=== PATIENT | female | born 1975 | race Caucasian/White ===

== ENCOUNTER 2018-03-31 11:33 | Inpatient (IN) | payer OTHER ==
[2018-03-31] MEDS ORDERED: LACTATED RINGERS 1,000 ML IV PRN (12:28)
[2018-03-31] MEDS ORDERED: FENTANYL 100MCG/2ML SOL IV PRN (12:28)
[2018-03-31] MEDS ORDERED: METHYLERGONOVINE MALEATE 0.2 MG/ML SOL IM PRN (12:28)
[2018-03-31] MEDS ORDERED: SODIUM CHLORIDE 0.9% FLUSH 10 ML SOL IV PRN (12:28)
[2018-03-31] MEDS ORDERED: OXYTOCIN 10000 MU/ML SOL IM PRN (12:28)
[2018-03-31] MEDS ORDERED: CARBOPROST 250 MCG/ML SOL IM PRN (12:28)
[2018-03-31] MEDS ORDERED: MEPIVACAINE HCL 1% MPF 30 ML/VIAL SOL INFIL PRN (12:28)
[2018-03-31] MEDS ORDERED: INSULIN HUMAN REGULAR 100 U/ML SOL SC ONE ×2 (12:40→17:00)
[2018-03-31 12:54] LABS: BASOPHILS % (AUTO) 0 % (0-3); EOSINOPHILS % (AUTO) 2 % (0-9); HEMATOCRIT 35 % (35-47); HEMOGLOBIN 11.2 gm/dl (12.0-15.5); LYMPHOCYTES % (AUTO) 17.9 % (10-50); MEAN CORPUSCULAR HEMOGLOBIN 26.8 pg (27.0-32.0); MEAN CORPUSCULAR HGB CONC 32.3 gm/dl (32.0-36.0); MEAN CORPUSCULAR VOLUME 83 fL (81-99); MONOCYTES % (AUTO) 5.4 % (0-12); NEUTROPHILS % (AUTO) 74.7 % (37-80)
[2018-03-31] MEDS ORDERED: INSULIN HUMAN REGULAR 100 U/ML SOL ONE (12:54)
[2018-03-31] MEDS: SODIUM CHLORIDE 0.9% FLUSH 10 ML SOL IV SCH ×2 (13:08→19:45)
[2018-03-31] MEDS: NOVOLOG FLEXPEN SC SCH ×2 (17:30→21:59)
[2018-03-31] MEDS ORDERED: TERBUTALINE SULFATE 1 MG/ML SOL SC PRN (18:40)
[2018-03-31] MEDS ORDERED: OXYTOCIN 10000 MU/ML 20,000 MU in LACTATED RINGERS 1,000 ML IV SCH (18:45)
[2018-03-31] MEDS ORDERED: LACTATED RINGERS 1,000 ML IV SCH (18:45)
[2018-03-31] MEDS ORDERED: OXYTOCIN 10000 MU/ML SOL ONE (19:28)
[2018-03-31] MEDS ORDERED: LACTATED RINGERS 1,000 ML ONE (19:29)
[2018-03-31] MEDS ORDERED: DIPHENHYDRAMINE 50 MG/ML SOL IV PRN (21:22)
[2018-03-31] MEDS ORDERED: NALBUPHINE HCL 20 MG/ML SOL IV PRN (21:22)
[2018-03-31] MEDS ORDERED: EPHEDRINE SULFATE 50 MG/ML SOL IV PRN (21:22)
[2018-03-31] MEDS ORDERED: NALOXONE HYDROCHLORIDE 0.4 MG/ML SOL IV PRN (21:22)
[2018-03-31] MEDS: LACTATED RINGERS 1,000 ML IV SCH ×3 (21:33→22:30)
[2018-03-31] MEDS ORDERED: FENTANYL 250 MCG/ 5ML SOL ONE (21:53)
[2018-03-31] MEDS ORDERED: ROPIVACAINE HYDROCHLORIDE 5 MG/ML SOL ONE (21:53)
[2018-04-01] MEDS: LACTATED RINGERS 1,000 ML IV SCH ×4 (04:47→17:18)
[2018-04-01] MEDS: SODIUM CHLORIDE 0.9% FLUSH 10 ML SOL IV SCH ×3 (04:48→21:48)
[2018-04-01] MEDS ORDERED: ACETAMINOPHEN 325 MG PO PRN (05:11)
[2018-04-01] MEDS: NOVOLOG FLEXPEN SC SCH ×4 (08:34→21:40)
[2018-04-01] MEDS ORDERED: AZITHROMYCIN 500 MG PDS 500 MG in SODIUM CHLORIDE 0.9% 250 ML 250 ML IV ONE (11:49)
[2018-04-01] MEDS ORDERED: CITRIC ACID/SODIUM CITRATE SOL PO ONE (11:49)
[2018-04-01] MEDS ORDERED: SODIUM CHLORIDE 0.9% 50 ML 25 ML IV PRN (11:49)
[2018-04-01] MEDS ORDERED: LIDOCAINE HCL 2% MPF 10 ML SOL ONE (12:18)
[2018-04-01] MEDS ORDERED: FENTANYL 100MCG/2ML SOL ONE (12:22)
[2018-04-01 12:29] LABS: BASOPHILS % (AUTO) 0 % (0-3); EOSINOPHILS % (AUTO) 1 % (0-9); HEMATOCRIT 36 % (35-47); HEMOGLOBIN 11.2 gm/dl (12.0-15.5); MEAN CORPUSCULAR HEMOGLOBIN 25.8 pg (27.0-32.0); MEAN CORPUSCULAR HGB CONC 30.8 gm/dl (32.0-36.0); MEAN CORPUSCULAR VOLUME 84 fL (81-99); MONOCYTES % (AUTO) 6.9 % (0-12); NEUTROPHILS % (AUTO) 81.9 % (37-80)
[2018-04-01] MEDS ORDERED: AZITHROMYCIN 500 MG PDS IV ONE (12:29)
[2018-04-01] MEDS ORDERED: ONDANSETRON HCL 4 MG/2 ML SOL ONE (12:42)
[2018-04-01] MEDS ORDERED: PHENYLEPHRINE HYDROCHLORIDE 10 MG/ML SOL ONE (12:44)
[2018-04-01] MEDS ORDERED: CEFAZOLIN SODIUM 1 GM PDS IV ONE (12:53)
[2018-04-01] MEDS: CEFAZOLIN (PREMIX) 1 GM 1 GM/50 ML SOL IV SCH ×2 (12:53→18:54)
[2018-04-01] MEDS ORDERED: LACTATED RINGERS 1,000 ML with OXYTOCIN 10000 MU/ML 20 MU IV ONE (12:55)
[2018-04-01] MEDS ORDERED: OXYTOCIN 10000 MU/ML SOL ONE ×2 (12:59→14:16)
[2018-04-01 13:13] LABS: ABO A; ANTIBODY SCREEN Negative; RH TYPE Positive
[2018-04-01] MEDS ORDERED: HYDROMORPHONE 1 MG/ML SYRINGE ONE (13:35)
[2018-04-01] MEDS ORDERED: BUPIVACAINE HCL 0.25% MPF 30 ML SOL INFIL ONE (13:48)
[2018-04-01] MEDS ORDERED: WITCH HAZEL 1 EA PAD TOP PRN (13:51)
[2018-04-01] MEDS ORDERED: METHYLERGONOVINE MALEATE 0.2 MG TAB PO PRN (13:51)
[2018-04-01] MEDS ORDERED: BISACODYL 10 MG SUP PR PRN (13:51)
[2018-04-01] MEDS ORDERED: TEMAZEPAM 15MG 15 MG CAP PO PRN (13:51)
[2018-04-01] MEDS ORDERED: BENZOCAINE/MENTHOL 1 SPR TOP PRN (13:51)
[2018-04-01] MEDS ORDERED: FLEET ENEMA PR PRN (13:51)
[2018-04-01] MEDS ORDERED: SODIUM CHLORIDE 0.9% FLUSH 10 ML SOL IV ONE (13:57)
[2018-04-01] MEDS: APAP/HYDROCODONE 1 EACH TABLET PO PRN ×2 (14:26→23:45)
[2018-04-01] MEDS: IBUPROFEN 600 MG TAB PO PRN ×2 (17:20→18:53)
[2018-04-01] MEDS ORDERED: CEFAZOLIN SODIUM 1 GM PDS ONE (18:40)
[2018-04-01 20:37] LABS: APPEARANCE,URINE Clear; BILIRUBIN,URINE NEGATIVE (NEGATIVE); COLOR,URINE Yellow; GLUCOSE, URINE (UA) NEGATIVE (NEGATIVE); KETONES,URINE NEGATIVE (NEGATIVE); LEUKOCYTE ESTERASE ,URINE NEGATIVE (NEGATIVE); NITRATE,URINE NEGATIVE (NEGATIVE); OCCULT BLOOD,URINE TRACE LYSED (NEG-TRACE); PH,URINE 5.5; UROBILINOGEN,URINE 0.2 (0.2-1.0 EU)
[2018-04-01] MEDS ORDERED: APAP/HYDROCODONE 1 EACH TABLET ONE ×2 (20:44→20:54)
[2018-04-01 20:50] LABS: BACTERIA NEGATIVE (< 1+); CRYSTALS NEGATIVE (0-3 AVE/HPF); EPITHELIAL CELLS 0-3 (SQUAMOUS); RBC,URINE 0-1 (0-3AV/HPF); WBC,URINE 0-1 (0-5AV/HPF)
[2018-04-01] MEDS: DOCUSATE SODIUM 100 MG SGL PO SCH (21:35)
[2018-04-02] MEDS: IBUPROFEN 600 MG TAB PO PRN ×3 (03:58→21:54)
[2018-04-02] MEDS: LACTATED RINGERS 1,000 ML IV SCH (06:57)
[2018-04-02] MEDS: APAP/HYDROCODONE 1 EACH TABLET PO PRN ×4 (08:17→21:54)
[2018-04-02] MEDS: DOCUSATE SODIUM 100 MG SGL PO SCH ×2 (08:17→21:50)
[2018-04-02] MEDS: NOVOLOG FLEXPEN SC SCH ×4 (10:59→21:57)
[2018-04-02] MEDS: FERROUS GLUCONATE 324 MG TABLET PO SCH ×2 (12:09→21:50)
[2018-04-02] MEDS: MULTIVITAMIN2 1 EA TAB PO SCH (12:09)
[2018-04-02] MEDS: FOLIC ACID 1 MG TAB PO SCH (12:09)
[2018-04-02] MEDS: FLUTICASONE PROPIONATE SPR NAS SCH (13:00)
[2018-04-03] MEDS: APAP/HYDROCODONE 1 EACH TABLET PO PRN ×4 (02:33→21:24)
[2018-04-03] MEDS: IBUPROFEN 600 MG TAB PO PRN ×2 (06:54→13:50)
[2018-04-03] MEDS: FERROUS GLUCONATE 324 MG TABLET PO SCH ×2 (08:32→21:24)
[2018-04-03] MEDS: NOVOLOG FLEXPEN SC SCH ×2 (08:32→21:05)
[2018-04-03] MEDS: DOCUSATE SODIUM 100 MG SGL PO SCH ×2 (08:32→21:24)
[2018-04-03] MEDS: MULTIVITAMIN2 1 EA TAB PO SCH (08:33)
[2018-04-03] MEDS: FLUTICASONE PROPIONATE SPR NAS SCH (08:33)
[2018-04-03] MEDS: FOLIC ACID 1 MG TAB PO SCH (08:35)
[2018-04-04] MEDS: APAP/HYDROCODONE 1 EACH TABLET PO PRN ×2 (02:45→06:56)
[2018-04-04] MEDS: FERROUS GLUCONATE 324 MG TABLET PO SCH (08:14)
[2018-04-04] MEDS: DOCUSATE SODIUM 100 MG SGL PO SCH (08:14)
[2018-04-04] MEDS: FOLIC ACID 1 MG TAB PO SCH (08:14)
[2018-04-04] MEDS: MULTIVITAMIN2 1 EA TAB PO SCH (08:15)
[2018-04-04] MEDS: FLUTICASONE PROPIONATE SPR NAS SCH (08:15)
[2018-04-04 08:35] VITALS: BP 135/77; PULSE 66; RESP 16; TEMP 98; O2SAT 96
== END 2018-04-04 11:40 | disposition home or self-care (01) | DRG 787 ==
LOC: OB 11:33 → OBSVTOIN 11:33 → OB 04-01 13:10
PROVIDERS: ADMIT Family Medicine; ATTEND Family Medicine
PROC: 0U7C7ZZ Dilation of Cervix, Via Natural or Artificial Opening (ICD-10-PCS; 2018-03-31)
PROC: 10907ZC Drainage of Amniotic Fluid, Therapeutic from Products of Conception, Via Natural or Artificial Opening (ICD-10-PCS; 2018-04-01)
PROC: 10D00Z1 Extraction of Products of Conception, Low, Open Approach (ICD-10-PCS; principal; 2018-04-01 12:55)
DX: O64.8XX0 Obstructed labor due to other malposition and malpresentation, not applicable or unspecified (principal); O16.3 Unspecified maternal hypertension, third trimester; Z37.0 Single live birth; Z3A.38 38 weeks gestation of pregnancy; O24.419 Gestational diabetes mellitus in pregnancy, unspecified control
CPT/HCPCS: 36415; 81001; 82962; 85018; 85025; 86850; 86900; 86901; 94762; J0456; J0670; J0690; J1200; J1815; J2405; J2590; J2795; J3010; A9270-GY; J1170; J2370